=== PATIENT | female | born 1960 | race Caucasian/White ===

== ENCOUNTER 2016-05-12 19:10 | Emergency (ER) | payer BC ==
[~2016-05-12] VITALS: Ht 157.5 cm; Wt 71.1 kg
[~2016-05-12 19:10] MED LIST: PANT40TA25 PO
[2016-05-12 19:20] VITALS: Ht 157.5 cm; Wt 71.1 kg
--- NOTE | 2016-05-12 19:30 | ERPDOC ---
Departure Disposition Decision Date: May 12, 2016 Disposition Decision Time: 21:10 Disposition: 01 DISCHARGED HOME, SELF-CARE Impression Impression Impression: Primary Impression: Viral gastroenteritis Additional Impression: Dehydration Severity: Moderate Condition: Improved Seen By: Physician only Referrals: JUAN AYON II, MD (Family) Patient Instructions: Gastroenteritis (ED) Problems/Meds/Labs Reviewed?: Yes Medications reviewed and manag: Yes Additional Instructions: Zofran, 4 mg tablet every 6 hours as needed for nausea. Izard diet, clear liquids. Be sure to stay hydrated. Follow-up with her primary care provider as needed. Follow up care ordered?: Yes Mental Status: Alert, Confused HPI - Dyspnea General Stated Complaint: LEFT SIDE STOMACH PAIN Time Seen by Provider: 19:29 HPI - Dyspnea Initial Comments 56-year-old female with abdominal pain for 2-3 days. She has had dry heaves, and one episode of diarrhea. She does not feel like eating anything for the last day and a half and has become dehydrated. She was seen in [facility] after hours clinic and felt miserable enough that she wanted to come to the ER for full workup. She was given the opportunity of waiting until tomorrow and coming back to clinic, but she felt like she was getting worse. She's not had fever. No shortness of breath, but does have body aches. 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 Allergies: Coded Allergies: meperidine HCl (Verified Allergy, Unknown, 05/12/16) Past History Past Medical History Pt denies signifigant PMH Surgical History Denies Surgeries Social History Smoking Status: Never smoker Substance Use Type: does not use Record Review Pertinent history updated: Yes Review of Systems GI Upper Abdomen: see HPI General: DENIES: dysuria, frequency, urgency Musculoskeletal General: see HPI All other Systems All Other Systems: Reviewed and Negative Physical Exam General General Nourishment: well nourished, appears stated age, no acute distress General Body Habitus: well groomed Vitals and Pain First Documented Vital Signs Date Time Temp Pulse Resp B/P Pulse Ox O2 Delivery O2 Flow Rate FiO2 05/12/16 19:20 98.6 84 18 150/79 98 Room Air Weight: Kilograms: Height (feet): Height (inches): Triage Pain Scale: Normal Exams: Head: Normocephalic w/o trauma Neck: Full range of motion, without adenopathy, JVD, bruits or thyromegaly Chest/Resp: Clear all cas[place], with good airflow, and symmetry bilaterally CV: Regular rate and rhythm, without murmur or gallop, Pulses 2+ all extremities, capillary refill, <2 seconds all ext., no pedal edema noted Abdomen: Bowel sounds positive, no hepatosplenomegaly, masses or bruits noted Neurologic: Patient is alert, and oriented, cranial nerves, motor/sensory/ cerebellar, exams w/o gross deficits, to observation Psychiatric: Patient exhibits, appropriate attention, emotion and affect Abdomen (brief) Comments Very mild tenderness to palpation right lower quadrant. Questionable rebound tenderness Differential Diagnoses Considering: Other (viral gastroenteritis, dehydration, colitis, appendicitis, intra-abdominal abscess) Progress Results/Orders Orders Procedure Category Date Status Time Iv Lock (Ed Only) EDM 05/12/16 Transmitted 19:41 Cbc W/Auto LAB 05/12/16 Complete Diff-Reflex Manual 19:41 Cmp - Comprehensive LAB 05/12/16 Complete Metabolic 19:41 Lipase LAB 05/12/16 Complete 19:41 Ua, Dip Wreflex LAB 05/12/16 Complete Microsc & Gas Specialist 19:41 Normal Saline (Normal PHA 05/12/16 Complete Saline Iv) 19:41 Ondansetron Inj PHA 05/12/16 Complete (Zofran) 19:45 Ketorolac (Toradol) PHA 05/12/16 Complete 19:45 Ct Abd/Pelvis CT 05/12/16 Taken W/Contrast Only 19:41 Iohexol (Omnipaque) PHA 05/12/16 Complete 20:24 Normal Saline (Ns) PHA 05/12/16 Complete 20:24 Saline Flush (Iv PHA 05/12/16 Complete Flush) 20:24 Lab Results Laboratory Tests Test 05/12/16 19:58 White Blood Count 9.5T/MM3 Red Blood Count 4.92M/MM3 Hemoglobin 14.4GM/DL Hematocrit 43.8% Mean Corpuscular Volume 89.0UM3 Mean Corpuscular Hemoglobin 29.3UUG Mean Corpuscular Hemoglobin Concent 32.9GM/DL RDW Standard Deviation 42.4FL Platelet Count 206T/MM3 Mean Platelet Volume 10.0UM3 Immature Granulocyte % (Auto) % Neutrophils (%) (Auto) % Lymphocytes (%) (Auto) % Monocytes (%) (Auto) % Eosinophils (%) (Auto) % Basophils (%) (Auto) % Absolute Immature Granulocyte (auto T/MM3 Absolute Neutrophils (auto) T/MM3 Absolute Lymphocytes (auto) T/MM3 Absolute Monocytes (auto) T/MM3 Absolute Eosinophils (auto) T/MM3 Absolute Basophils (auto) T/MM3 Neutrophils % (Manual) 85.0% Band Neutrophils % 1.0% Lymphocytes % (Manual) 14.0% Absolute Neutrophils (Manual) 8.1T/MM3 Band Neutrophils # 0.1T/MM3 Lymphocytes # (Manual) 1.3T/MM3 Red Cell Morphology Comment Normal Urine Collection Type Voided-not cc-midstr Urine Color Yellow Urine Turbidity Clear Urine pH 5.5 Urine Specific [place] <=1.005 Urine Protein Negative Urine Glucose (UA) Negative Urine Ketones Negative Urine Blood Negative Urine Nitrite Negative Urine Bilirubin Negative Urine Urobilinogen 0.2EU/DL Urine Leukocyte Esterase Negative Urinalysis Comment Microscopic not ind. Turbidity < 20 Sodium Level 147MEQ/L Potassium Level 3.5MEQ/L Chloride Level 107MEQ/L Carbon Dioxide Level 26MEQ/L Anion Gap 14MEQ/L Blood Urea Nitrogen 10.0MG/DL Creatinine 0.7MG/DL Glomerular Filtration Rate Calc 87 BUN/Creatinine Ratio 14RATIO Glucose Level 101MG/DL Calculated Osmolality 281MOSM/KG Calcium Level 9.9MG/DL Total Bilirubin 0.90MG/DL Icterus Index < 2 Aspartate Amino Transf (AST/SGOT) 24U/L Alanine Aminotransferase (ALT/SGPT) 33U/L Alkaline Phosphatase 85U/L Total Protein 7.1G/DL Albumin 4.3G/DL Globulin 2.8G/DL Albumin/Globulin Ratio 1.5RATIO Lipase 93U/L Chemistry Specimen Hemolysis < 15 Medications Current ED Medications Sodium Chloride (Normal Saline IV) 1,000 ml @ 1,000 mls/hr Q1H ONCE IV Last administered on 05/12/16 20:00; Start 05/12/16 at 19:41; Stop 05/12/16 at 20:40; Status DC Ondansetron HCl (Zofran) 4 mg O ONCE IV Last administered on 05/12/16 20:00; Start 05/12/16 at 19:45; Stop 05/12/16 at 19:48; Status DC Ketorolac Tromethamine (Toradol) 30 mg O ONCE IV Last administered on t 20:00; Start 05/12/16 at 19:45; Stop 05/12/16 at 19:48; Status DC Iohexol 1 bottle 1 bottle STK-MED ONCE .ROUTE ; Start 05/12/16 at 20:24; Stop 05/12/16 at 20:25; Status DC Sodium Chloride (NS) 100 ml @ As Directed STK-MED ONCE .ROUTE ; Start 05/12/16 at 20:24; Stop 05/12/16 at 20:25; Status DC Sodium Chloride (Iv Flush) 10 ml STK-MED ONCE .ROUTE ; Start 05/12/16 at 20:24; Stop 05/12/16 at 20:25; Status DC Progress Progress White count normal at 9.5, CMP is appropriate. CT of abdomen is negative for acute findings. Patient has appropriate symptoms for viral gastroenteritis with dehydration. She was given 1 L of normal saline IV, Zofran 4 mg IV, Toradol 30 mg IV. At time of discharge she felt much improved. She is encouraged to continue hydration. I did offer her Decadron IV for bodyaches, the sister clean for symptom relief. She declined as she does not take any regular medications and would prefer not to. She'll follow-up with her regular physician as needed. KENIA DE LA GARZA MD May 12, 2016 19:30
[2016-05-12] MEDS ORDERED: NORMAL SALINE 1,000 ML IV ONE (19:41)
[2016-05-12] MEDS ORDERED: KETOROLAC 30mg/ml INJECTION IV ONE (19:45)
[2016-05-12] MEDS ORDERED: ONDANSETRON 4mg/2ml INJECTION IV ONE (19:45)
[2016-05-12] MEDS ORDERED: NO ROUTINE MEDS (19:50)
[2016-05-12 20:05] LABS: BLOOD, URINE NEGATIVE (NEGATIVE); COLOR,URINE YELLOW (YELLOW); LEUKOCYTE ESTERASE ,URINE NEGATIVE (NEGATIVE); NITRITE,URINE NEGATIVE (NEGATIVE); UROBILINOGEN,URINE 0.2 EU/DL (NORMAL)
[2016-05-12 20:13] LABS: HCT - HEMATOCRIT 43.8 % (36-46); HGB - HEMOGLOBIN 14.4 GM/DL (12-16); MEAN CORPUSCULAR HGB 29.3 UUG (26-34); MEAN CORPUSCULAR HGB CONC(MCHC 32.9 GM/DL (31-37); RED BLOOD COUNT 4.92 M/MM3 (4.00-5.20); WBC - WHITE BLOOD COUNT 9.5 T/MM3 (4.5-11.0)
[2016-05-12 20:17] LABS: ALBUMIN 4.3 G/DL (3.5-5.0); ALBUMIN/GLOBULIN RATIO 1.5 RATIO (1.1-2.2); ALKALINE PHOSPHATASE 85 U/L (38-126); ALT (SGPT) 33 U/L (9-52); ANION GAP 14 MEQ/L (5-15); AST (SGOT) 24 U/L (14-36); BUN/CREATININE RATIO 14 RATIO (6-26); CALCIUM 9.9 MG/DL (8.4-10.2); CHLORIDE 107 MEQ/L (98-107); CO2 - CARBON DIOXIDE 26 MEQ/L (22-30); CREATININE 0.7 MG/DL (0.7-1.2); GLOMERULAR FILTRATION RATE 87; GLUCOSE 101 MG/DL (65-110); LIPASE 93 U/L (23-300); POTASSIUM 3.5 MEQ/L (3.6-5); SODIUM 147 MEQ/L (134-144); TOTAL PROTEIN 7.1 G/DL (6.3-8.2)
--- NOTE | 2016-05-12 20:20 | NUR ---
PROVIDER DR DE LA GARZA IN TO SEE PATIENT.
[2016-05-12] MEDS ORDERED: SALINE FLUSH 10ml SYRINGE ONE (20:24)
[2016-05-12] MEDS ORDERED: NORMAL SALINE 100 ML ONE (20:24)
[2016-05-12] MEDS ORDERED: IOHEXOL 300 MG/ML 100ml INJECTION ONE (20:24)
--- NOTE | 2016-05-12 20:27 | NUR ---
TO CT PER CART.
[2016-05-12 20:33] LABS: BAND NEUTROPHILS # 0.1 T/MM3; LYMPHOCYTES # (MANUAL) 1.3 T/MM3 (1-4.8); NEUTROPHILS #(MANUAL)-ABSOLUTE 8.1 T/MM3 (1.8-7.7); TOTAL CELLS COUNTED 100 %
--- NOTE | 2016-05-12 20:43 | NUR ---
ELIMINATION PATIENT UP TO BR TO VOID. ABLE TO WALK WITHOUT DIFFICULTIES. FAMILY AT BEDSIDE.
--- NOTE | 2016-05-12 21:04 | NUR ---
PROVIDER DR DE LA GARZA IN TO SEE PATIENT.
[2016-05-12] MEDS ORDERED: ONDANSETRON LIQ 4mg/5ml #3 (PrePack) SENT HOME ONE (21:15)
[2016-05-12 21:22] VITALS: BP 142/74; PULSE 75; RESP 16; TEMP 98.2; O2SAT 99
[2016-05-12] MEDS ORDERED: ONDANSETRON ODT 4mg #3 (PrePack) SENT HOME ONE (21:45)
--- NOTE | 2016-05-13 07:56 | DI ---
Indication: ITS.REASON: abdominal pain PROCEDURE: CT ABD/PELVIS W/CONTRAST ONLY: Encounter: Initial Comparison: December 14, 2011 Technique: Axial CT images were performed through the abdomen and pelvis after the administration of intravenous contrast. Coronal and sagittal two-dimensional reformats. Automated Exposure Control and Iterative Reconstruction dose reducing techniques were utilized. Contrast: Omnipaque 300 89 mL Findings: The lung bases are clear. The liver is normal. Gallbladder is surgically absent. The spleen, pancreas and adrenal glands are within normal limits. Kidneys are normal. No abdominal or pelvic lymphadenopathy. Bladder is normal. Uterus is within normal limits. No free fluid or evidence of a bowel obstruction. Bone windows are unremarkable. Appendix is not definitely seen but there are no inflammatory changes near its expected location. Impression: No acute disease process seen. There is a preliminary report by [employer]. .
== END 2016-05-12 21:22 | disposition home or self-care (01) ==
LOC: ED 19:10
DX: A08.4 Viral intestinal infection, unspecified (principal); E86.0 Dehydration
CPT/HCPCS: 36415; 74177; 80053; 81003; 83690; 85025; 96361; 96374; 96375; 99284; J1885; J2405; J7030; J7050; Q9967